=== PATIENT | female | born 1985 | race Two or more races ===

== ENCOUNTER 2022-01-31 20:35 | Emergency (ER) | payer SELFPAY ==
[~2022-01-31] VITALS: Ht 154.9 cm; Wt 90.0 kg
[2022-01-31 21:37] VITALS: BP 130/74
[2022-02-01 00:15] LABS: BASOPHILS % 0.4 % (0.0-2.0); EOSINOPHILS % 1.8 % (0.0-5.0); HEMATOCRIT. 32.8 % (36.0-48.0); HEMOGLOBIN. 10.3 g/dL (12.0-16.0); LYMPHOCYTES % 26.8 % (20.0-50.0); MEAN CORPUSCULAR VOLUME 73.1 fL (81.0-99.0); MEAN PLATELET VOLUME 7.6 fl (7.4-10.4); MONOCYTES % 6.2 % (2.0-8.0); NEUTROPHILS % 64.8 % (40.0-76.0); PLATELET 448 x1000/uL (130-400); RED BLOOD CELL COUNT 4.49 mill/uL (4.2-5.4); RED CELL DISTRIBUTION WIDTH 17.9 % (11.6-14.6)
[2022-02-01 00:20] LABS: CHLORIDE 113 mEq/L (98-107)
== END 2022-02-01 00:55 | disposition left against medical advice (07) ==
LOC: ER 20:38
DX: Z53.21 Procedure and treatment not carried out due to patient leaving prior to being seen by health care provider (principal); R42 Dizziness and giddiness; R11.2 Nausea with vomiting, unspecified; R20.2 Paresthesia of skin
CPT/HCPCS: 36415; 80053; 85025; 99283